=== PATIENT | male | born 1975 | race Caucasian/White ===

== ENCOUNTER → 2022-02-22 | Day surgery (SDC) | payer SELFPAY ==
[~2022-02-22] VITALS: Ht 188 cm; Wt 102.4 kg
[~2022-02-22] MED LIST: DAZIDOX10 MG PO; FISH OIL1000 MG PO; FLEXERIL 1010 MG/TAB PO; GLUCOTROL 5M5 MG/TAB PO; HCTZ 25MG TAB25 MG PO; LANTUS100 U/ML SQ; MOTRIN 600600 MG/TAB PO; NEURONTIN300 MG/CAP PO; PROTONIX 40MG T40 MG PO; TRULICITY0.75 MG/0. SQ; ZOCOR 40MG40 MG PO
[2022-02-22 14:15] VITALS: BP 144/99; PULSE 91; TEMP 97.5
--- NOTE | 2022-02-22 14:23 | NUR ---
1420 - CORRECTIONAL TREATMENT SPECIALIST was contacted to report BS: [id number]. No new orders recieved.
[2022-02-22 15:25] VITALS: BP 119/82; PULSE 85
--- NOTE | 2022-02-22 15:25 | NUR ---
PATIENT TO RECOVERY BAY 6 POST PROCEDURE. REMAINS ON CART FOR SAFETY DUE TO SEDATION. PATIENT GIVEN WARM BLANKETS. VITAL SIGNS TAKEN. GIVEN WATER AND TOAST.
[2022-02-22 15:30] VITALS: BP 129/83; PULSE 84
[2022-02-22 15:45] VITALS: BP 122/80; PULSE 85
[2022-02-22 16:00] VITALS: BP 144/80; PULSE 84
--- NOTE | 2022-02-22 16:15 | NUR ---
PATIENT CHANGES OUT OF GOWN INTO STREET CLOTHES. DISMISSAL INSTRUCTIONS GIVEN AND EXPLAINED. WRITTEN COPIES GIVEN. VERBALIZES UNDERSTANDING.
--- NOTE | 2022-02-22 16:21 | NUR ---
PATIENT DISMISSED VIA WHEELCHAIR TO WAITING GARMENT PARTS CUTTER MACHINE BY RN. ASSISTED TO CAR.
== END ==
LOC: SDCO 13:06
DX: K64.1 Second degree hemorrhoids (principal); R13.10 Dysphagia, unspecified; K92.0 Hematemesis; F17.210 Nicotine dependence, cigarettes, uncomplicated; E11.9 Type 2 diabetes mellitus without complications; Z79.899 Other long term (current) drug therapy; Z79.4 Long term (current) use of insulin
CPT/HCPCS: J2704; J7030